=== PATIENT | male | born 1960 | race Caucasian/White ===

== ENCOUNTER 2020-06-27 23:00 | Emergency (ER) | payer MEDICARE, MEDICAID, SELFPAY ==
[2020-06-27 23:08] VITALS: BP 136/82; PULSE 93; RESP 18; TEMP 36.7; O2SAT 95; BMI 31.6
--- NOTE | 2020-06-27 23:12 | ECG_ITS ---
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
[2020-06-28 00:44] VITALS: BP 141/83; PULSE 84; RESP 19; O2SAT 92
--- NOTE | 2020-06-28 01:16 | ED_ITS ---
HPI - Arrhythmia/Palpitations General: Chief Complaint: Arrhythmia/Palpitations Stated Complaint: rapid heart rate Time Seen by Provider: 06/28/20 00:47 History of Present Illness: HPI narrative: Patient is a 59-year-old male who comes to the ED via EMS for heart palpitations. Patient lives in [facility] in [place] and has been diagnosed with schizophrenia. He says he started developing rapid heart rate at longterm that he attributes likely due to anxiety and stress. long-term staff said his pulse was around 119 and they gave him a dose of 25 mg of metoprolol before coming to the ED. He says he got into a verbal argument with a fellow patient there at the longterm. He also says he did not get any sleep last night because roommates monitors kept beeping. Currently here in the ED he has no symptoms and his heart palpitations have resolved. Patient does state that he is not happy with current longterm and is hoping to leave there in the future. Denies fever, chest pain, shortness of breath, nausea/vomiting, abdominal pain, bladder or bowel symptoms. Associated symptoms: Reports anxiety (Stress from his current living situation at longterm.); Deny nausea or vomiting Review of Systems Const: Denies: fever(s), chills or fatigue Eyes: Denies: change in vision or eye discomfort ENMT: Denies: throat pain, odynophagia, nasal discharge or nasal congestion Card: Reports: palpitations (resolved before arriving here to the ED.); Denies: chest pain, edema, swelling of feet/ankles, dyspnea on exertion or orthopnea Resp: Denies: dyspnea, productive cough or non-productive cough GI: Denies: abdominal pain, nausea, vomiting, diarrhea, constipation or hematochezia : Denies: flank pain, difficulty urinating, dysuria or hematuria Musc: Denies: neck pain, back pain or extremity swelling Skin/Breast: Denies: rash or new lesions Neuro: Denies: headache(s), numbness in extremities or weakness in extremities Psych: Reports: anxiety (Stress from his current living situation at longterm.) Physical Exam Const: COMMON NORMALS: no acute distress, patient oriented x3 and alert GENERAL APPEARANCE: cooperative and comfortable HENMT: COMMON NORMALS: normocephalic HEAD & SCALP: normocephalic MOUTH: Normal oral and palatal mucosa present THROAT: posterior oropharynx normal and uvula midline Eye: COMMON NORMALS: Equal, round and reactive pupils present PUPIL: Yes Equal, round and reactive pupils present Neck/C-Spine: COMMON NORMALS: supple GENERAL: Yes normal visual inspection Resp: COMMON NORMALS: normal respiratory effort, No retractions, No use of accessory muscles and clear to auscultation bilaterally AUSCULTATION: clear to auscultation bilaterally Cardio: COMMON NORMALS: regular rate, regular rhythm, S1 normal heart sound present, S2 normal heart sound present, No gallops present (Cardio), No clicks present (Cardio), No murmurs present (Cardio) and Peripheral pulses 2+ throughout RATE: regular rate RHYTHM: regular rhythm HEART SOUNDS: S1 normal heart sound present and S2 normal heart sound present PERIPHERAL PULSES: Peripheral pulses 2+ throughout GI: COMMON NORMALS: Normal to inspection, nondistended, normoactive bowel sounds present, Soft to palpation, non-tender and no masses PALPATION: Yes Soft to palpation : COMMON NORMALS: Yes no CVA tenderness BLADDER/KIDNEY EXAM: Yes no CVA tenderness Back/Pelvis: COMMON NORMALS: no CVA tenderness Extremity: COMMON NORMALS: normal to inspection and no pedal edema Neuro: COMMON NORMALS: patient oriented x3 and moves all extremities SENSORIUM/ORIENTATION: Yes alert Skin: GENERAL SKIN EXAM: dry skin Course Vital Signs: Vital signs: Vital Signs Temperature 98.1 F 06/27/20 23:08 Pulse Rate 84 06/28/20 02:00 Respiratory Rate 17 06/28/20 02:00 Blood Pressure 115/78 06/28/20 02:00 Pulse Oximetry 92 06/28/20 02:00 MDM - Arrhythmia/Palpitations MDM Narrative: Medical decision making narrative: Patient is a 59-year-old male who comes to the ED with heart palpitations. He says he has been stressed and anxious at his longterm and last night he had trouble sleeping because his roommates monitor kept beeping. He says before onset of palpitations he got into a verbal argument with a fellow resident there at the longterm. Patient was given 50 mg of metoprolol before coming to the ED and his heart palpitations resolved. He has no other symptoms here in the ED and just states that he does not like the longterm he is at home hopes to leave there soon. Denies any chest pain, shortness of breath, nausea/vomiting. Vital signs stable with pulse 84. EKG showed sinus rhythm with first-degree AV block, [address] segment elevation or depression seen. Patient was diagnosed with stress and anxiety and discharged. He was told to follow-up with PCP in 7 to 10 days for reevaluation. Return to ED precautions given. Patient understood with plan. EKG Data^: EKG 1: Attestation: I personally reviewed and interpreted this EKG as follows: EKG interpretation date: 06/27/20 Interpretation: Sinus rhythm with first-degree AV block. 89 bpm, no ST segment elevation or depression seen. Discharge Plan Discharge Patient Disposition: Home Clinical Impression: Anxiety, Stress Condition: Stable Discharge Orders: Discharge ED (Routine); Ordered 06/28/20 Ordered By: Travon Mon Referrals: Nadir Peraza MD [Primary Care Provider] - Discharge Diet: Regular Discharge Activity: Resume usual activity Patient Instructions: Stress (ED), Anxiety (ED) Activity Restrictions/Additional Instructions: Follow-up with medical provider as directed in 7-10 days. Continue taking home medications as previously prescribed. Return to the ER or your medical provider if condition worsens. Please read and understand discharge instructions. If any questions, please ask. 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
[2020-06-28 02:00] VITALS: BP 115/78; PULSE 84; RESP 17; O2SAT 92
--- NOTE | 2020-06-28 02:05 | PC.SOCIAL ---
[facility] called, trip #[id number]. YAEL given trip number. He will be returning to [facility] [address] [place] [address]
--- NOTE | 2020-06-28 02:27 | PC.NURSE ---
Destinee Conn [facility] notified of plan for return [employer] called
[2020-06-28 02:49] VITALS: BP 116/72; PULSE 84; RESP 18; TEMP 36.7; O2SAT 92
== END 2020-06-28 02:53 | disposition home or self-care (01) ==
PROVIDERS: Emergency Provider Physician Assistant; PCP Family Medicine
DX: F41.9 Anxiety disorder, unspecified (principal); F43.9 Reaction to severe stress, unspecified
CPT/HCPCS: 12345; 93005; 99281; 99282